=== PATIENT | female | born 1970 | race Caucasian/White ===

== ENCOUNTER 2019-10-22 23:35 | Emergency (ER) | payer MEDICAID, SELFPAY ==
[2019-10-22 23:40] VITALS: BP 113/89; PULSE 112; RESP 26; TEMP 37.1; O2SAT 95; BMI 33.3
--- NOTE | 2019-10-22 23:43 | ED_ITS ---
HPI - Asthma General: Chief Complaint: Asthma Stated Complaint: ASTHMA Time Seen by Provider: 10/22/19 23:35 Source: patient Mode of arrival: ambulatory Limitations: no limitations History of Present Illness: HPI Narrative: 49-year-old female who states she has extreme allergies to cleaning products and has a history of asthma. Patient states she has a Snyder's nares and cleaning products that makes her having a severe asthma attack. Patient gave herself an EpiPen. Patient brought in by EMS given breathing treatment in route. States she is feeling slightly improved but still does have wheezing. She denies any throat swelling. Patient vomited once in route. Denies any pain or fever. MD complaint: asthma attack Onset (ago): hour(s) Severity: moderate Associated symptoms: Deny chest pain or fever(s) Review of Systems Const: Denies: fever(s), chills, body aches or change in appetite Eyes: Denies: blurry vision or eye discomfort ENMT: Denies: throat pain or dental pain Card: Denies: chest pain Resp: Reports: dyspnea and wheezing GI: Denies: abdominal pain, nausea, vomiting or diarrhea : Denies: dysuria Musc: Denies: neck pain or back pain Skin/Breast: Denies: rash Neuro: Denies: headache(s) Psych: Denies: depression Raji/Lymph: Denies: easy bruising All/Imm: Denies: urticaria PFSH ED PFSH: Social History (Updated 10/22/19 @ 23:52 by Yuan Galindo RN) Smoking and tobacco status: never smoked Alcohol intake: never Substance/Drug Use: never Physical Exam Const: COMMON NORMALS: no acute distress, patient oriented x3 and healthy appe aring HENMT: COMMON NORMALS: normocephalic and atraumatic HEAD & SCALP: normocephalic and atraumatic Eye: COMMON NORMALS: Equal, round and reactive pupils present and EOMs intact bilaterally PUPIL: Yes Equal, round and reactive pupils present Neck/C-Spine: COMMON NORMALS: full ROM and supple Chest: COMMONS NORMALS: normal inspection of the chest and normal palpation of entire chest wall Resp: COMMON NORMALS: normal respiratory effort, No retractions, No use of accessory muscles and clear to auscultation bilaterally AUSCULTATION: clear to auscultation bilaterally and wheezes Cardio: COMMON NORMALS: regular rate, regular rhythm and No murmurs present (Cardio) RATE: regular rate RHYTHM: regular rhythm GI: COMMON NORMALS: Normal to inspection, nondistended, normoactive bowel sounds present, Soft to palpation, non-tender and no masses PALPATION: Yes Soft to palpation Extremity: COMMON NORMALS: normal to inspection and full ROM Neuro: COMMON NORMALS: patient oriented x3, moves all extremities and no focal motor deficits Psych: COMMON NORMALS: mental status grossly normal, Normal thought process present and cooperative THOUGHT PROCESS: Normal thought process present Skin: COMMON NORMALS: no rashes or lesions noted and no wounds GENERAL SKIN EXAM: no rashes or lesions noted Course Vital Signs: Vital signs: Vital Signs Temperature 98.8 F 10/22/19 23:40 Pulse Rate 112 H 10/22/19 23:40 Respiratory Rate 26 H 10/22/19 23:40 Blood Pressure 113/89 10/22/19 23:40 Pulse Oximetry 95 10/22/19 23:40 MDM - Asthma MDM Narrative: Medical decision making narrative: Patient presents here with an allergic reaction to chemical smells. Patient is much improved here and will prescribe prednisone for home. Patient refused x-ray here and is when the x-ray tech came in she had perfume on and she would not allow her to do her x-ray due to the smells. We do not have another x-ray tech to perform this at this time. Patient's oxygen saturation is been normal here. She has no throat swelling. She is stable for discharge and return if worsening. Patient's family was very upset that someone came into the room wearing perfume. Discharge Plan Discharge Patient Disposition: Home Clinical Impression: Asthma with acute exacerbation Qualifiers: Asthma severity: unspecified severity Asthma persistence: unspecified Qualified Code(s): J45.901 - Unspecified asthma with (acute) exacerbation Allergic reaction Qualifiers: Encounter type: initial encounter Qualified Code(s): T78.40XA - Allergy, unspecified, initial encounter Condition: Stable Prescriptions: New prednisone 50 mg tablet 50 mg PO DAILY Qty: 5 RF: 0 Discharge Orders: Discharge Order (Routine); Ordered 10/23/19 Ordered By: Rosalinda Garcia Referrals: Hector Orona MD [Primary Care Provider] - 1-3 days Discharge Diet: Advance as tolerated Discharge Activity: Resume usual activity Patient Instructions: Asthma (ED) Coding Level of Care Code ED Scrub Wheel Operator for Avinashg Fwd Exam Comprehensive
[2019-10-23] MEDS: LORazepam 2 mg/mL INJ 1 mL 1 MG IVP (00:27)
[2019-10-23] MEDS: diphenhydrAMINE 50 mg/mL SDV 1mL IVP (00:27)
[2019-10-23 01:17] VITALS: BP 109/67; PULSE 102; RESP 18; O2SAT 98
== END 2019-10-23 01:19 | disposition home or self-care (01) ==
PROVIDERS: Emergency Provider Emergency Medicine; PCP Family Medicine
DX: J45.901 Unspecified asthma with (acute) exacerbation (principal); T78.40XA Allergy, unspecified, initial encounter
CPT/HCPCS: 12345; 96374; 96375; 99282; 99283; J1200; J2060; J2930; J7611

== ENCOUNTER → 2020-11-06 10:36 | Outpatient (BNVA) | payer MEDICAID, SELFPAY | PROVIDERS: PCP Family Medicine; Referring Provider Family Medicine; Visit Provider Nurse Practitioner | DX: G43.909 Migraine, unspecified, not intractable, without status migrainosus (principal); R56.9 Unspecified convulsions | CPT/HCPCS: 99204 ==